=== PATIENT | female | born 2000 | race Two or more races ===

== ENCOUNTER 2021-04-27 18:40 | Emergency (ER) | payer OTHER ==
[~2021-04-27] VITALS: Ht 170.2 cm; Wt 81.6 kg
--- NOTE | 2021-04-27 20:30 | NUR ---
Patient is resting comfortably in bed on cell phone, no acute distress noted.
[2021-04-27] MEDS ORDERED: ACETAMINOPHEN ES 500 MG TABLET PO ONE (21:15)
[2021-04-27 21:27] VITALS: BP 106/60
--- NOTE | 2021-04-27 21:27 | NUR ---
Patient discharged to home in stable condition. Written and verbal after care instructions given. Patient verbalizes understanding of instructions. Stressed follow up or return to ER for worsening s/s. Patient ambulatory with steady gait, V/S stable, left with all personal belongings.
[2021-04-27] MEDS ORDERED: ACETAMINOPHEN ES 500 MG TABLET ONE (21:28)
== END 2021-04-27 21:27 | disposition home or self-care (01) ==
LOC: ER 18:46
DX: R50.9 Fever, unspecified (principal); R53.83 Other fatigue; Z20.822 Contact with and (suspected) exposure to COVID-19
CPT/HCPCS: 87400; A4663; A9150